=== PATIENT | female | born 1950 | race Two or more races ===

== ENCOUNTER 2024-08-27 05:39 | Inpatient (IN) | payer BC, OTHER ==
[~2024-08-27] VITALS: Ht 154.9 cm; Wt 100.2 kg
[2024-08-27 06:35] LABS: BASOPHILS # (AUTO) 0.1 K/uL (0.0-0.2); BASOPHILS % (AUTO) 0.4 % (0.0-2.0); EOSINOPHILS # (AUTO) 0.3 K/uL (0.0-0.7); EOSINOPHILS % (AUTO) 1.9 % (0.0-6.0); HEMATOCRIT 37 % (33-45); HEMOGLOBIN 11.8 g/dL (11.5-14.8); LYMPHOCYTES # (AUTO) 1.3 K/uL (0.8-4.8); LYMPHOCYTES % (AUTO) 8.4 % (20.0-44.0); MEAN CORPUSCULAR HEMOGLOBIN 28 PG (26.0-33.0); MEAN CORPUSCULAR HGB CONC 32 g/dl (31.0-36.0); MEAN CORPUSCULAR VOLUME 88 fL (82-100); MONOCYTES # (AUTO) 0.8 K/uL (0.1-1.30); MONOCYTES % (AUTO) 5.1 % (2.0-12.0); NEUTROPHILS # (AUTO) 13.3 K/uL (1.8-8.9); NEUTROPHILS % (AUTO) 84.2 % (43.0-81.0); PLATELET COUNT (AUTO) 279 K/uL (150-450); RED BLOOD CELL COUNT(AUTO) 4.18 MIL/uL (4.0-5.2); RED CELL DISTRIBUTION WIDTH 15.4 % (11.5-15.0); WHITE BLOOD COUNT (AUTO) 15.8 K/uL (4.3-11.0)
[2024-08-27 06:48] LABS: ALANINE AMINOTRANSFERASE 21 U/L (12-78); ALBUMIN 3.5 g/dL (3.4-5.0); ALKALINE PHOSPHATASE 78 U/L (46-116); ASPARTATE AMINOTRANSFERASE 20 U/L (15-37); BILIRUBIN,DIRECT 0.2 mg/dL (0.0-0.2); BILIRUBIN,TOTAL 0.6 mg/dL (0.2-1.0); CALCIUM, SERUM 8.9 mg/dL (8.5-10.1); CARBON DIOXIDE 31 mmol/L (21-32); CHLORIDE 96 mmol/L (98-107); CREATININE 1.3 mg/dL (0.6-1.3); GLUCOSE 154 mg/dL (74-106); POTASSIUM 4.2 mmol/L (3.5-5.1); SODIUM SERUM 132 mmol/L (136-145); UREA NITROGEN, BLOOD 10 mg/dL (7-18)
[2024-08-27] MEDS ORDERED: IOHEXOL-350 100 ML VIAL IV ONE (07:41)
[2024-08-27] MEDS ORDERED: IV NS 0.9% 250 ML IV ONE (07:42)
[2024-08-27] MEDS ORDERED: CT SWABBABLE VALVE TRANS SET 1 EA INFUS.SET MC ONE (07:42)
[2024-08-27] MEDS: PIPERACILLIN /TAZOBACTAM 3.375 G in IV D5W 50 ML IV ONE (08:00)
[2024-08-27] MEDS ORDERED: TRAZ-182 PO (08:35)
[2024-08-27] MEDS ORDERED: SIMV10TA98 PO (08:35)
[2024-08-27] MEDS ORDERED: GLIP5TAB13 PO (08:35)
[2024-08-27] MEDS ORDERED: SITA1TAB2 PO (08:35)
[2024-08-27] MEDS ORDERED: BENA40TA8 PO (08:35)
[2024-08-27] MEDS ORDERED: NIFE90TA38 PO (08:35)
[2024-08-27] MEDS ORDERED: METO50TA16 PO (08:35)
[2024-08-27] MEDS ORDERED: FURO20TA4 PO (08:35)
[2024-08-27] MEDS ORDERED: FUROSEMIDE 40 MG/4 ML VIAL ONE (08:40)
[2024-08-27] MEDS: FUROSEMIDE 40 MG/4 ML VIAL IV ONE (08:45)
[2024-08-27 10:25] VITALS: O2SAT 93
[2024-08-27] MEDS ORDERED: ENOXAPARIN SODIUM 40 MG/0.4 ML DISP.SYRIN SQ SCH (12:30)
[2024-08-27] MEDS ORDERED: ONDANSETRON HCL/PF 4 MG/2 ML VIAL IVP PRN (12:30)
[2024-08-27] MEDS ORDERED: Z GUARD REMEDY 4 OZ OINT TP PRN (12:30)
[2024-08-27] MEDS: BUMETANIDE INJ 6 MG in IV NS 0.9% 36 ML IV ONE (12:55)
[2024-08-27] MEDS: ENOXAPARIN SODIUM 30 MG/0.3 ML DISP.SYRIN SQ SCH (14:09)
[2024-08-27 16:00] VITALS: BP 130/66; TEMP 97.9; O2SAT 96
[2024-08-27] MEDS ORDERED: DEXTROSE 50%-WATER 50 ML DISP.SYRIN IV PRN (16:00)
[2024-08-27] MEDS: glipiZIDE 5 MG TABLET PO SCH (16:33)
[2024-08-27 16:57] LABS: APPEARANCE,URINE CLEAR (CLEAR); BILIRUBIN,URINE NEGATIVE (NEGATIVE); BLOOD, URINE TRACE-INTA Ery/uL (NEGATIVE); KETONES,URINE NEGATIVE (NEGATIVE); LEUKOCYTE ESTERASE ,URINE NEGATIVE (NEGATIVE); NITRITE, URINE NEGATIVE (NEGATIVE); PH,URINE 6.5 (5.0-8.0); PROTEIN,URINE NEGATIVE (NEGATIVE); UGLUCOSE NEGATIVE (NEGATIVE); UROBILINOGEN,URINE 0.2 EU/dL (0.2)
[2024-08-27] MEDS: BLOOD SUGAR DIAGNOSTIC 1 EACH STRIP IN SCH (17:00)
[2024-08-27] MEDS: INSULIN REGULAR, HUMAN 100 UNIT/ML 3 ML VIAL SQ PRN (17:01)
[2024-08-27 17:02] LABS: COLOR,URINE LIGHT YELLOW (YELLOW)
[2024-08-27 17:06] LABS: RBC,URINE 0-2 /HPF (0-2); WBC,URINE 0-2 /HPF (0-3)
[2024-08-27 17:07] LABS: ADD URINE CULTURE NO; BACTERIA,URINE Rare /HPF (None Seen)
[2024-08-27] MEDS: APIXABAN 2.5 MG TABLET PO SCH (17:14)
[2024-08-27] MEDS: SIMVASTATIN 10 MG TABLET PO SCH (17:14)
[2024-08-27 19:02] LABS: THYROID STIMULATING HORMONE 4.08 uIU/mL (0.358-3.74)
[2024-08-27] MEDS: TRAZODONE 50 MG TABLET PO SCH (21:36)
[2024-08-27] MEDS: METOPROLOL TARTRATE 50 MG TABLET PO SCH (21:36)
[2024-08-28] VITALS: BP 129/70; TEMP 98.1; O2SAT 96
[2024-08-28 04:00] VITALS: BP 129/70; TEMP 98.1; O2SAT 96
[2024-08-28 06:52] LABS: BASOPHILS % (AUTO) 0.3 % (0.0-2.0); EOSINOPHILS # (AUTO) 0.1 K/uL (0.0-0.7); EOSINOPHILS % (AUTO) 0.7 % (0.0-6.0); HEMATOCRIT 37 % (33-45); LYMPHOCYTES # (AUTO) 0.7 K/uL (0.8-4.8); MEAN CORPUSCULAR HEMOGLOBIN 28 PG (26.0-33.0); MEAN CORPUSCULAR HGB CONC 32 g/dl (31.0-36.0); MEAN CORPUSCULAR VOLUME 88 fL (82-100); MONOCYTES # (AUTO) 0.8 K/uL (0.1-1.30); MONOCYTES % (AUTO) 7.4 % (2.0-12.0); NEUTROPHILS # (AUTO) 9.1 K/uL (1.8-8.9); NEUTROPHILS % (AUTO) 84.6 % (43.0-81.0); PLATELET COUNT (AUTO) 279 K/uL (150-450); RED BLOOD CELL COUNT(AUTO) 4.25 MIL/uL (4.0-5.2); RED CELL DISTRIBUTION WIDTH 15.2 % (11.5-15.0); WHITE BLOOD COUNT (AUTO) 10.7 K/uL (4.3-11.0)
[2024-08-28 07:10] LABS: CALCIUM, SERUM 8.2 mg/dL (8.5-10.1); CREATININE 1.4 mg/dL (0.6-1.3); MAGNESIUM 1.9 mg/dL (1.8-2.4); POTASSIUM 3.5 mmol/L (3.5-5.1)
[2024-08-28 07:19] LABS: THYROID STIMULATING HORMONE 2.91 uIU/mL (0.358-3.74)
[2024-08-28 08:00] VITALS: BP 112/60; TEMP 99.9; O2SAT 97
[2024-08-28] MEDS ORDERED: FUROSEMIDE 20 MG TABLET PO SCH (09:00)
[2024-08-28] MEDS: PANTOPRAZOLE 40 MG TABLET.DR PO SCH (09:03)
[2024-08-28] MEDS: NIFEdipine XL (30MG) 30 MG TAB PO SCH (09:04)
[2024-08-28] MEDS: BENAZEPRIL HCL 20 MG TABLET PO SCH (09:04)
[2024-08-28] MEDS: APIXABAN 2.5 MG TABLET PO SCH (09:05)
[2024-08-28] MEDS: ACETAMINOPHEN 325 MG TABLET PO PRN (11:24)
[2024-08-28 12:00] VITALS: BP 113/64; TEMP 99.5; O2SAT 96
[2024-08-28] MEDS: IV NS 0.9% 250 ML IV ONE (12:44)
[2024-08-28] MEDS: AZITHROMYCIN 250 MG TABLET PO ONE (12:47)
[2024-08-28 14:04] LABS: ABG BASE EXCESS 10.7 mmol/L (-2.0-3.0); ABG OXYGEN SATURATION 97.3 % (94.0-98.0); ABG PCO2 60.6 mmHg (32.0-45.0); ABG PH 7.409 (7.350-7.450); ABG PO2 98.6 mmHg (83.0-108.0); ABG TOTAL HEMOGLOBIN 12.2 G/dL (12.0-16.0); COHb 0.2 % (0.5-1.5); MetHb 0.3 % (0.0-1.5); O2Hb 96.8 % (94.0-97.0); SITE, ABG RIGHT RADIAL
[2024-08-28] MEDS ORDERED: SORBITOL SOLUTION 70% 30 ML SOLUTION PO PRN (18:30)
[2024-08-28] MEDS: LACTULOSE 10 G/15 ML UDC (PYXIS) PO ONE (18:33)
[2024-08-29 08:00] VITALS: BP 126/57; TEMP 98.6; O2SAT 98
[2024-08-29] MEDS: AZITHROMYCIN 250 MG TABLET PO SCH (12:25)
[2024-08-29] MEDS ORDERED: SIMV10TA98 PO (15:09)
[2024-08-29] MEDS ORDERED: APIX2.5T PO (15:09)
[2024-08-29] MEDS ORDERED: NIFE90TA38 PO (15:09)
[2024-08-29] MEDS ORDERED: SITA1TAB2 PO (15:09)
[2024-08-29] MEDS ORDERED: METO50TA16 PO (15:09)
[2024-08-29] MEDS ORDERED: BENA40TA8 PO (15:09)
[2024-08-29] MEDS ORDERED: SORB30SO2 PO (15:09)
[2024-08-29] MEDS ORDERED: TRAZ-182 PO (15:09)
[2024-08-29] MEDS ORDERED: AZIT250T PO (15:09)
[2024-08-29] MEDS ORDERED: GLIP5TAB13 PO (15:09)
[2024-08-29] MEDS ORDERED: PANT40TA49 PO (15:09)
[2024-08-29] MEDS ORDERED: BUME0.5T6 PO (15:09)
[2024-08-29 16:00] VITALS: BP 109/53; TEMP 99.5; O2SAT 94
== END 2024-08-29 19:00 | disposition home or self-care (01) | DRG 291 ==
LOC: ER 05:53 → MED 10:36 → TELE 21:37
PROVIDERS: ADMIT Nurse Practitioner Acute Care; ATTEND Nurse Practitioner Acute Care
DX: I11.0 Hypertensive heart disease with heart failure (principal); I50.33 Acute on chronic diastolic (congestive) heart failure; J96.01 Acute respiratory failure with hypoxia; J98.11 Atelectasis; N39.0 Urinary tract infection, site not specified; D68.59 Other primary thrombophilia; N17.9 Acute kidney failure, unspecified; E66.2 Morbid (severe) obesity with alveolar hypoventilation; Z68.41 Body mass index [BMI] 40.0-44.9, adult; I48.91 Unspecified atrial fibrillation; B96.20 Unspecified Escherichia coli [E. coli] as the cause of diseases classified elsewhere; E11.9 Type 2 diabetes mellitus without complications; E78.5 Hyperlipidemia, unspecified; Z79.84 Long term (current) use of oral hypoglycemic drugs; Z20.822 Contact with and (suspected) exposure to COVID-19; F03.90 Unspecified dementia, unspecified severity, without behavioral disturbance, psychotic disturbance, mood disturbance, and anxiety; E83.9 Disorder of mineral metabolism, unspecified
CPT/HCPCS: 36415; 36600; 71045-TC; 80048-TC; 80061-TC; 80076-TC; 81001; 82803-TC; 82962-TC; 83605-TC; 83735-TC; 83880; 84100-TC; 84155; 84165; 84439-TC; 84443-TC; 84484-TC; 85025-TC; 85378-TC; 87040-TC; 93307-TC; 93970-TC; 94799-TC; A4223; G0378; J1650; J1815; J1940; J2543; J3490; J7030; J7050; J7060; Q9967

== ENCOUNTER 2024-09-22 17:42 | Inpatient (IN) | payer BC, OTHER ==
[~2024-09-22] VITALS: Ht 165.1 cm; Wt 97.1 kg
[~2024-09-22 17:42] MED LIST: APIX2.5T PO; AZIT250T PO; BENA40TA8 PO; BUME0.5T6 PO; FURO20TA4 PO; GLIP5TAB13 PO; METO50TA16 PO; NIFE90TA38 PO; PANT40TA49 PO; SIMV10TA98 PO; SITA1TAB2 PO; SORB30SO2 PO; TRAZ-182 PO
[2024-09-22 18:19] LABS: BASOPHILS % (AUTO) 0.5 % (0.0-2.0); EOSINOPHILS # (AUTO) 0.1 K/uL (0.0-0.7); EOSINOPHILS % (AUTO) 0.5 % (0.0-6.0); HEMATOCRIT 34 % (33-45); HEMOGLOBIN 11.1 g/dL (11.5-14.8); LYMPHOCYTES # (AUTO) 0.7 K/uL (0.8-4.8); LYMPHOCYTES % (AUTO) 6.5 % (20.0-44.0); MEAN CORPUSCULAR HEMOGLOBIN 28 PG (26.0-33.0); MEAN CORPUSCULAR HGB CONC 33 g/dl (31.0-36.0); MEAN CORPUSCULAR VOLUME 87 fL (82-100); MONOCYTES # (AUTO) 0.6 K/uL (0.1-1.30); MONOCYTES % (AUTO) 6.4 % (2.0-12.0); NEUTROPHILS # (AUTO) 8.6 K/uL (1.8-8.9); NEUTROPHILS % (AUTO) 86.1 % (43.0-81.0); PLATELET COUNT (AUTO) 229 K/uL (150-450); RED BLOOD CELL COUNT(AUTO) 3.92 MIL/uL (4.0-5.2); RED CELL DISTRIBUTION WIDTH 15.7 % (11.5-15.0)
[2024-09-22 18:32] LABS: CALCIUM, SERUM 8.8 mg/dL (8.5-10.1); CARBON DIOXIDE 30 mmol/L (21-32); CHLORIDE 87 mmol/L (98-107); CREATININE 1.5 mg/dL (0.6-1.3); GLUCOSE 227 mg/dL (74-106); POTASSIUM 4.1 mmol/L (3.5-5.1); SODIUM SERUM 122 mmol/L (136-145); UREA NITROGEN, BLOOD 21 mg/dL (7-18)
[2024-09-22 18:44] LABS: ALANINE AMINOTRANSFERASE 26 U/L (12-78); ALBUMIN 3.5 g/dL (3.4-5.0); ALKALINE PHOSPHATASE 79 U/L (46-116); ASPARTATE AMINOTRANSFERASE 28 U/L (15-37); BILIRUBIN,DIRECT 0.2 mg/dL (0.0-0.2); BILIRUBIN,TOTAL 0.4 mg/dL (0.2-1.0); NT-PRO BNP 4154 pg/mL (0-125); TOTAL PROTEIN, SERUM 9.1 g/dL (6.4-8.2)
[2024-09-22] MEDS: FUROSEMIDE 40 MG/4 ML VIAL IV ONE (19:12)
[2024-09-22] MEDS ORDERED: BUME0.5T6 PO (19:14)
[2024-09-22] MEDS ORDERED: ACETAMINOPHEN 325 MG TABLET PO PRN (21:00)
[2024-09-22] MEDS ORDERED: DEXTROSE 50%-WATER 50 ML DISP.SYRIN IV PRN (21:00)
[2024-09-22] MEDS ORDERED: Z GUARD REMEDY 4 OZ OINT TP PRN (21:00)
[2024-09-22] MEDS ORDERED: ONDANSETRON HCL/PF 4 MG/2 ML VIAL IVP PRN (21:00)
[2024-09-22] MEDS ORDERED: MAG HYDROX/AL HYDROX/SIMETH 30 ML UDC PO PRN (21:00)
[2024-09-22] MEDS: TRAZODONE 50 MG TABLET PO SCH (21:55)
[2024-09-22] MEDS: METOPROLOL TARTRATE 50 MG TABLET PO SCH (21:56)
[2024-09-22] MEDS: BLOOD SUGAR DIAGNOSTIC 1 EACH STRIP IN SCH (23:08)
[2024-09-22] MEDS: INSULIN REGULAR, HUMAN 100 UNIT/ML 3 ML VIAL SQ PRN (23:26)
[2024-09-23] VITALS: BP 130/70; TEMP 99.1; O2SAT 95
[2024-09-23 04:00] VITALS: BP 100/60; TEMP 98.4; O2SAT 98
[2024-09-23 08:00] VITALS: BP 121/68; TEMP 97.7; O2SAT 98
[2024-09-23 08:07] LABS: BASOPHILS % (AUTO) 0.1 % (0.0-2.0); EOSINOPHILS # (AUTO) 0.1 K/uL (0.0-0.7); EOSINOPHILS % (AUTO) 0.8 % (0.0-6.0); HEMATOCRIT 35 % (33-45); HEMOGLOBIN 11.3 g/dL (11.5-14.8); LYMPHOCYTES # (AUTO) 0.8 K/uL (0.8-4.8); LYMPHOCYTES % (AUTO) 8.5 % (20.0-44.0); MEAN CORPUSCULAR HEMOGLOBIN 28 PG (26.0-33.0); MEAN CORPUSCULAR HGB CONC 32 g/dl (31.0-36.0); MEAN CORPUSCULAR VOLUME 88 fL (82-100); MONOCYTES # (AUTO) 0.7 K/uL (0.1-1.30); MONOCYTES % (AUTO) 7.5 % (2.0-12.0); NEUTROPHILS # (AUTO) 7.6 K/uL (1.8-8.9); NEUTROPHILS % (AUTO) 83.1 % (43.0-81.0); PLATELET COUNT (AUTO) 246 K/uL (150-450); RED BLOOD CELL COUNT(AUTO) 3.99 MIL/uL (4.0-5.2); RED CELL DISTRIBUTION WIDTH 15.8 % (11.5-15.0); WHITE BLOOD COUNT (AUTO) 9.1 K/uL (4.3-11.0)
[2024-09-23] MEDS: PANTOPRAZOLE 40 MG TABLET.DR PO SCH (08:19)
[2024-09-23 08:30] LABS: CALCIUM, SERUM 8.6 mg/dL (8.5-10.1); CARBON DIOXIDE 36 mmol/L (21-32); CHLORIDE 90 mmol/L (98-107); CREATININE 1.4 mg/dL (0.6-1.3); GLUCOSE 83 mg/dL (74-106); PHOSPHORUS 4.5 mg/dL (2.5-4.9); SODIUM SERUM 125 mmol/L (136-145); UREA NITROGEN, BLOOD 21 mg/dL (7-18)
[2024-09-23] MEDS: FUROSEMIDE 40 MG/4 ML VIAL IV SCH (08:51)
[2024-09-23] MEDS: BENAZEPRIL HCL 20 MG TABLET PO SCH (08:51)
[2024-09-23] MEDS: NIFEdipine XL (30MG) 30 MG TAB PO SCH (08:52)
[2024-09-23] MEDS: APIXABAN 2.5 MG TABLET PO SCH (08:53)
[2024-09-23 12:00] VITALS: BP 125/68; TEMP 97.5; O2SAT 95
[2024-09-23 16:00] VITALS: BP 130/70; TEMP 97.6; O2SAT 94
[2024-09-23] MEDS: SIMVASTATIN 10 MG TABLET PO SCH (17:51)
[2024-09-23 20:00] VITALS: BP 128/77; TEMP 97.7; O2SAT 94
[2024-09-24] VITALS: BP 119/62; TEMP 98.6; O2SAT 96
[2024-09-24 01:56] LABS: APPEARANCE,URINE SLIGHTLY CLOUDY (CLEAR); BILIRUBIN,URINE NEGATIVE (NEGATIVE); BLOOD, URINE 2+ Ery/uL (NEGATIVE); COLOR,URINE YELLOW (YELLOW); KETONES,URINE NEGATIVE (NEGATIVE); LEUKOCYTE ESTERASE ,URINE 1+ (NEGATIVE); NITRITE, URINE POSITIVE (NEGATIVE); PROTEIN,URINE 2+ mg/dl (NEGATIVE); UGLUCOSE NEGATIVE (NEGATIVE); UROBILINOGEN,URINE 0.2 EU/dL (0.2)
[2024-09-24 01:57] LABS: ADD URINE CULTURE YES; BACTERIA,URINE Moderate /HPF (None Seen); EOSINOPHIL,URINE None Seen; SQUAMOUS EPITHELIAL CELL,UR Few /HPF (None Seen); WBC,URINE 21-50 /HPF (0-3)
[2024-09-24 02:06] LABS: CREATININE, URINE 64.1 MG/DL (30.0-125.0); URINE TOTAL PROTEIN 145.9 mg/dL (0-11.9)
[2024-09-24 04:00] VITALS: BP 138/75; TEMP 98.1; O2SAT 95
[2024-09-24 08:21] VITALS: BP 127/56; TEMP 98.6; O2SAT 93
[2024-09-24 10:33] LABS: BASOPHILS % (AUTO) 0.3 % (0.0-2.0); EOSINOPHILS # (AUTO) 0.1 K/uL (0.0-0.7); EOSINOPHILS % (AUTO) 0.6 % (0.0-6.0); HEMATOCRIT 34 % (33-45); HEMOGLOBIN 10.8 g/dL (11.5-14.8); LYMPHOCYTES # (AUTO) 0.6 K/uL (0.8-4.8); MEAN CORPUSCULAR HEMOGLOBIN 29 PG (26.0-33.0); MEAN CORPUSCULAR HGB CONC 32 g/dl (31.0-36.0); MEAN CORPUSCULAR VOLUME 89 fL (82-100); MONOCYTES # (AUTO) 0.7 K/uL (0.1-1.30); MONOCYTES % (AUTO) 7.2 % (2.0-12.0); NEUTROPHILS # (AUTO) 8.1 K/uL (1.8-8.9); NEUTROPHILS % (AUTO) 85.9 % (43.0-81.0); PLATELET COUNT (AUTO) 214 K/uL (150-450); WHITE BLOOD COUNT (AUTO) 9.5 K/uL (4.3-11.0)
[2024-09-24 12:00] VITALS: BP 115/59; TEMP 96.5; O2SAT 95
[2024-09-24 13:14] LABS: ALBUMIN 2.9 g/dL (3.4-5.0); BILIRUBIN,TOTAL 0.3 mg/dL (0.2-1.0); CALCIUM, SERUM 8.6 mg/dL (8.5-10.1); CREATININE 1.1 mg/dL (0.6-1.3); MAGNESIUM 2.1 mg/dL (1.8-2.4); PHOSPHORUS 3.9 mg/dL (2.5-4.9); POTASSIUM 3.8 mmol/L (3.5-5.1); TOTAL PROTEIN, SERUM 7.8 g/dL (6.4-8.2)
[2024-09-24 16:00] VITALS: BP 108/59; TEMP 99.1; O2SAT 93
[2024-09-24 16:44] LABS: ABG BASE EXCESS 7.9 mmol/L (-2.0-3.0); ABG OXYGEN SATURATION 96.8 % (94.0-98.0); ABG PCO2 43.2 mmHg (32.0-45.0); ABG PH 7.489 (7.350-7.450); ABG PO2 77.5 mmHg (83.0-108.0); ABG TOTAL HEMOGLOBIN 11.8 G/dL (12.0-16.0); MetHb 0.1 % (0.0-1.5); O2Hb 96.7 % (94.0-97.0); SITE, ABG RIGHT BRACHIAL
[2024-09-24 20:00] VITALS: BP 109/69; TEMP 98.2; O2SAT 95
[2024-09-25] VITALS: BP 124/66; TEMP 98.2; O2SAT 95
[2024-09-25] MEDS: LORAZEPAM INJ 2 MG/ML VIAL IV ONE (03:30)
[2024-09-25 04:00] VITALS: BP 134/66; TEMP 97.5; O2SAT 93
[2024-09-25] MEDS: LORAZEPAM INJ 2 MG/ML VIAL IM/IV ONE (05:27)
[2024-09-25 07:38] LABS: BASOPHILS # (AUTO) 0.1 K/uL (0.0-0.2); BASOPHILS % (AUTO) 0.6 % (0.0-2.0); EOSINOPHILS # (AUTO) 0.1 K/uL (0.0-0.7); EOSINOPHILS % (AUTO) 0.9 % (0.0-6.0); HEMATOCRIT 34 % (33-45); LYMPHOCYTES # (AUTO) 0.8 K/uL (0.8-4.8); LYMPHOCYTES % (AUTO) 7.6 % (20.0-44.0); MEAN CORPUSCULAR HEMOGLOBIN 28 PG (26.0-33.0); MEAN CORPUSCULAR HGB CONC 32 g/dl (31.0-36.0); MEAN CORPUSCULAR VOLUME 87 fL (82-100); MONOCYTES # (AUTO) 0.9 K/uL (0.1-1.30); MONOCYTES % (AUTO) 8.8 % (2.0-12.0); NEUTROPHILS # (AUTO) 8.5 K/uL (1.8-8.9); NEUTROPHILS % (AUTO) 82.1 % (43.0-81.0); PLATELET COUNT (AUTO) 225 K/uL (150-450); RED BLOOD CELL COUNT(AUTO) 3.88 MIL/uL (4.0-5.2); RED CELL DISTRIBUTION WIDTH 15.6 % (11.5-15.0); WHITE BLOOD COUNT (AUTO) 10.3 K/uL (4.3-11.0)
[2024-09-25 07:59] LABS: ALBUMIN 2.9 g/dL (3.4-5.0); BILIRUBIN,TOTAL 0.4 mg/dL (0.2-1.0); CALCIUM, SERUM 8.7 mg/dL (8.5-10.1); PHOSPHORUS 2.7 mg/dL (2.5-4.9); POTASSIUM 3.8 mmol/L (3.5-5.1); TOTAL PROTEIN, SERUM 7.9 g/dL (6.4-8.2)
[2024-09-25 08:00] VITALS: BP 120/97; TEMP 98.4; O2SAT 93
[2024-09-25 08:06] LABS: PTH, INTACT 48 pg/mL (15-65)
[2024-09-25] MEDS: FUROSEMIDE 40 MG/4 ML VIAL IV SCH (09:00)
[2024-09-25] MEDS ORDERED: POTASSIUM CHLORIDE 20 MEQ TAB.PRT.SR PO SCH (09:00)
[2024-09-25] MEDS ORDERED: POTASSIUM CHLORIDE 10 MEQ/50 ML PREMIXED IVPB FOR PERIPHERAL LINE IV ONE (10:00)
[2024-09-25] MEDS: POTASSIUM CL. PREMIX PERIPHER. 50 ML IV SCH (10:04)
[2024-09-25 12:00] VITALS: BP 137/89; TEMP 98.4; O2SAT 95
[2024-09-25] MEDS ORDERED: POLYVINYL ALCOHOL 15 ML BOTTLE EACHEYE PRN (12:30)
[2024-09-25] MEDS: CEFTRIAXONE 1 G in IV D5W 50 ML IV SCH (14:51)
[2024-09-25 16:00] VITALS: BP 127/68; TEMP 98.2; O2SAT 92
[2024-09-25 20:00] VITALS: BP 120/56; TEMP 98.1; O2SAT 98
[2024-09-26] VITALS: BP 107/62; TEMP 98.2; O2SAT 98
[2024-09-26 04:00] VITALS: BP 121/53; TEMP 98.1; O2SAT 98
[2024-09-26 07:55] LABS: BASOPHILS % (AUTO) 0.3 % (0.0-2.0); EOSINOPHILS # (AUTO) 0.1 K/uL (0.0-0.7); EOSINOPHILS % (AUTO) 1.4 % (0.0-6.0); HEMATOCRIT 36 % (33-45); HEMOGLOBIN 11.8 g/dL (11.5-14.8); LYMPHOCYTES # (AUTO) 1.2 K/uL (0.8-4.8); LYMPHOCYTES % (AUTO) 12.8 % (20.0-44.0); MEAN CORPUSCULAR HEMOGLOBIN 29 PG (26.0-33.0); MEAN CORPUSCULAR HGB CONC 33 g/dl (31.0-36.0); MEAN CORPUSCULAR VOLUME 88 fL (82-100); MONOCYTES % (AUTO) 10.3 % (2.0-12.0); NEUTROPHILS % (AUTO) 75.2 % (43.0-81.0); PLATELET COUNT (AUTO) 230 K/uL (150-450); RED BLOOD CELL COUNT(AUTO) 4.09 MIL/uL (4.0-5.2); RED CELL DISTRIBUTION WIDTH 15.9 % (11.5-15.0); WHITE BLOOD COUNT (AUTO) 9.3 K/uL (4.3-11.0)
[2024-09-26 08:00] VITALS: BP 137/70; TEMP 97.9; O2SAT 98
[2024-09-26 08:45] LABS: THYROID STIMULATING HORMONE 3.1 uIU/mL (0.358-3.74); URIC ACID 6.5 mg/dL (2.6-7.2)
[2024-09-26 09:26] LABS: ALBUMIN 3.1 g/dL (3.4-5.0); BILIRUBIN,TOTAL 0.4 mg/dL (0.2-1.0); CALCIUM, SERUM 8.9 mg/dL (8.5-10.1); CREATININE 1.2 mg/dL (0.6-1.3); MAGNESIUM 2.1 mg/dL (1.8-2.4); PHOSPHORUS 3.6 mg/dL (2.5-4.9); POTASSIUM 3.6 mmol/L (3.5-5.1); TOTAL PROTEIN, SERUM 8.3 g/dL (6.4-8.2)
[2024-09-26 12:00] VITALS: BP 101/48; TEMP 97.7; O2SAT 98
[2024-09-26 16:00] VITALS: BP 121/64; TEMP 97.9; O2SAT 96
[2024-09-26 20:00] VITALS: BP_SYST 121; BP_SYST 139; BP_DIAS 64; TEMP 98.8; O2SAT 96
[2024-09-27] VITALS: BP 142/74; TEMP 98.3; O2SAT 98
[2024-09-27 04:00] VITALS: BP 145/60; TEMP 98.6; O2SAT 100
[2024-09-27 07:07] LABS: BASOPHILS % (AUTO) 0.5 % (0.0-2.0); EOSINOPHILS # (AUTO) 0.3 K/uL (0.0-0.7); EOSINOPHILS % (AUTO) 3.1 % (0.0-6.0); HEMATOCRIT 36 % (33-45); HEMOGLOBIN 11.5 g/dL (11.5-14.8); LYMPHOCYTES # (AUTO) 1.3 K/uL (0.8-4.8); LYMPHOCYTES % (AUTO) 13.3 % (20.0-44.0); MEAN CORPUSCULAR HEMOGLOBIN 28 PG (26.0-33.0); MEAN CORPUSCULAR HGB CONC 32 g/dl (31.0-36.0); MEAN CORPUSCULAR VOLUME 88 fL (82-100); MONOCYTES # (AUTO) 1.2 K/uL (0.1-1.30); MONOCYTES % (AUTO) 11.8 % (2.0-12.0); NEUTROPHILS # (AUTO) 7.1 K/uL (1.8-8.9); NEUTROPHILS % (AUTO) 71.3 % (43.0-81.0); PLATELET COUNT (AUTO) 240 K/uL (150-450); RED BLOOD CELL COUNT(AUTO) 4.14 MIL/uL (4.0-5.2); RED CELL DISTRIBUTION WIDTH 16.4 % (11.5-15.0); WHITE BLOOD COUNT (AUTO) 9.9 K/uL (4.3-11.0)
[2024-09-27 07:29] LABS: CREATININE 0.9 mg/dL (0.6-1.3); MAGNESIUM 2.2 mg/dL (1.8-2.4); PHOSPHORUS 2.8 mg/dL (2.5-4.9); POTASSIUM 3.5 mmol/L (3.5-5.1)
[2024-09-27 08:00] VITALS: BP 144/68; TEMP 98.1; O2SAT 96
[2024-09-27] MEDS: PANTOPRAZOLE 40 MG/PACK PACK PO SCH (10:03)
[2024-09-27] MEDS: POTASSIUM CHLORIDE 20 MEQ TAB.PRT.SR PO ONE (10:04)
[2024-09-27] MEDS: acetaZOLAMIDE SODIUM 500 MG/VIAL VIAL IV ONE (10:11)
[2024-09-27 12:00] VITALS: BP 127/57; TEMP 98.1; O2SAT 96
[2024-09-27 14:20] LABS: ABG BASE EXCESS 17.1 mmol/L (-2.0-3.0); ABG OXYGEN SATURATION 94.5 % (94.0-98.0); ABG PCO2 70.5 mmHg (32.0-45.0); ABG PH 7.423 (7.350-7.450); ABG PO2 73.5 mmHg (83.0-108.0); ABG TOTAL HEMOGLOBIN 12.7 G/dL (12.0-16.0); COHb 0.6 % (0.5-1.5); MetHb 0.3 % (0.0-1.5); O2Hb 93.6 % (94.0-97.0); SITE, ABG RIGHT RADIAL
[2024-09-27 16:00] VITALS: BP 142/73; TEMP 98.6; O2SAT 99
[2024-09-27] MEDS: MAGNESIUM HYDROXIDE 30 ML UDC PO PRN (17:07)
[2024-09-27 20:00] VITALS: BP 134/66; TEMP 98.8; O2SAT 96
[2024-09-28] VITALS: BP 136/69; TEMP 98.6; O2SAT 97
[2024-09-28 04:00] VITALS: BP 135/65; TEMP 98.4; O2SAT 97
[2024-09-28 07:46] LABS: BASOPHILS # (AUTO) 0.1 K/uL (0.0-0.2); BASOPHILS % (AUTO) 0.5 % (0.0-2.0); EOSINOPHILS # (AUTO) 0.7 K/uL (0.0-0.7); EOSINOPHILS % (AUTO) 5.9 % (0.0-6.0); HEMATOCRIT 39 % (33-45); HEMOGLOBIN 12.3 g/dL (11.5-14.8); LYMPHOCYTES # (AUTO) 1.1 K/uL (0.8-4.8); LYMPHOCYTES % (AUTO) 9.1 % (20.0-44.0); MEAN CORPUSCULAR HEMOGLOBIN 28 PG (26.0-33.0); MEAN CORPUSCULAR HGB CONC 32 g/dl (31.0-36.0); MEAN CORPUSCULAR VOLUME 89 fL (82-100); MONOCYTES # (AUTO) 1.1 K/uL (0.1-1.30); MONOCYTES % (AUTO) 8.5 % (2.0-12.0); NEUTROPHILS # (AUTO) 9.6 K/uL (1.8-8.9); PLATELET COUNT (AUTO) 249 K/uL (150-450); RED CELL DISTRIBUTION WIDTH 16.5 % (11.5-15.0); WHITE BLOOD COUNT (AUTO) 12.7 K/uL (4.3-11.0)
[2024-09-28 08:00] VITALS: BP 133/101; TEMP 98.6; O2SAT 100
[2024-09-28 08:20] LABS: ALBUMIN 3.2 g/dL (3.4-5.0); BILIRUBIN,TOTAL 0.3 mg/dL (0.2-1.0); CALCIUM, SERUM 9.6 mg/dL (8.5-10.1); MAGNESIUM 2.3 mg/dL (1.8-2.4); POTASSIUM 3.7 mmol/L (3.5-5.1); TOTAL PROTEIN, SERUM 8.9 g/dL (6.4-8.2)
[2024-09-28] MEDS: POTASSIUM CHLORIDE 20 MEQ TAB.PRT.SR PO ONE (10:23)
[2024-09-28 12:00] VITALS: BP 114/68; TEMP 98.5; O2SAT 100
[2024-09-28] MEDS: acetaZOLAMIDE SODIUM 500 MG/VIAL VIAL IV ONE (12:42)
[2024-09-28 16:00] VITALS: BP 109/48; TEMP 98.4; O2SAT 98
[2024-09-28 20:00] VITALS: BP 114/61; TEMP 98.8; O2SAT 97
[2024-09-29 05:00] VITALS: BP 117/63; TEMP 98.1; O2SAT 99
[2024-09-29 07:55] LABS: BASOPHILS % (AUTO) 0.3 % (0.0-2.0); EOSINOPHILS # (AUTO) 0.9 K/uL (0.0-0.7); EOSINOPHILS % (AUTO) 8.2 % (0.0-6.0); HEMATOCRIT 39 % (33-45); HEMOGLOBIN 12.4 g/dL (11.5-14.8); LYMPHOCYTES # (AUTO) 1.2 K/uL (0.8-4.8); LYMPHOCYTES % (AUTO) 11.3 % (20.0-44.0); MEAN CORPUSCULAR HEMOGLOBIN 28 PG (26.0-33.0); MEAN CORPUSCULAR HGB CONC 32 g/dl (31.0-36.0); MEAN CORPUSCULAR VOLUME 89 fL (82-100); MONOCYTES # (AUTO) 0.9 K/uL (0.1-1.30); MONOCYTES % (AUTO) 8.3 % (2.0-12.0); NEUTROPHILS # (AUTO) 7.9 K/uL (1.8-8.9); NEUTROPHILS % (AUTO) 71.9 % (43.0-81.0); PLATELET COUNT (AUTO) 250 K/uL (150-450); RED BLOOD CELL COUNT(AUTO) 4.43 MIL/uL (4.0-5.2); RED CELL DISTRIBUTION WIDTH 16.4 % (11.5-15.0)
[2024-09-29 08:25] LABS: CALCIUM, SERUM 9.4 mg/dL (8.5-10.1); CREATININE 1.1 mg/dL (0.6-1.3); MAGNESIUM 2.4 mg/dL (1.8-2.4); PHOSPHORUS 3.3 mg/dL (2.5-4.9); POTASSIUM 3.7 mmol/L (3.5-5.1)
[2024-09-29 13:16] VITALS: BP 112/48; TEMP 98.4; O2SAT 98
[2024-09-30 15:07] LABS: *SPE A/G RATIO 0.7 (0.7-1.7); *SPE ALBUMIN 2.9 g/dL (2.9-4.4); *SPE ALPHA-1-GLOBULIN 0.2 g/dL (0.0-0.4); *SPE ALPHA-2-GLOBULIN 0.7 g/dL (0.4-1.0); *SPE BETA GLOBULIN 0.9 g/dL (0.7-1.3); *SPE GLOBULIN, TOTAL 4.1 g/dL (2.2-3.9); *SPE M-SPIKE Not Observed g/dL (Not Observed); *SPEGAMMA GLOBULIN 2.2 g/dL (0.4-1.8)
== END 2024-09-29 17:44 | disposition home health service (06) | DRG 291 ==
LOC: ER 17:49 → TELE1 20:23 → MEDSG1 09-28 09:33
PROVIDERS: ADMIT Nurse Practitioner Acute Care
DX: I13.0 Hypertensive heart and chronic kidney disease with heart failure and stage 1 through stage 4 chronic kidney disease, or unspecified chronic kidney disease (principal); I50.31 Acute diastolic (congestive) heart failure; J96.01 Acute respiratory failure with hypoxia; N17.0 Acute kidney failure with tubular necrosis; E87.1 Hypo-osmolality and hyponatremia; E87.4 Mixed disorder of acid-base balance; E66.2 Morbid (severe) obesity with alveolar hypoventilation; J90 Pleural effusion, not elsewhere classified; N39.0 Urinary tract infection, site not specified; B96.20 Unspecified Escherichia coli [E. coli] as the cause of diseases classified elsewhere; D64.9 Anemia, unspecified; E11.22 Type 2 diabetes mellitus with diabetic chronic kidney disease; E78.5 Hyperlipidemia, unspecified; I48.91 Unspecified atrial fibrillation; N18.9 Chronic kidney disease, unspecified; Z79.01 Long term (current) use of anticoagulants; Z79.84 Long term (current) use of oral hypoglycemic drugs; Z87.01 Personal history of pneumonia (recurrent); Z87.440 Personal history of urinary (tract) infections; Z20.822 Contact with and (suspected) exposure to COVID-19; Z68.35 Body mass index [BMI] 35.0-35.9, adult; E83.9 Disorder of mineral metabolism, unspecified
CPT/HCPCS: 36415; 36600; 71045-TC; 71250-TC; 76770-TC; 80048-TC; 80053-TC; 80076-TC; 81001; 82550-TC; 82570-TC; 82803-TC; 82962-TC; 83735-TC; 83880; 83970; 84100-TC; 84155; 84165; 84300-TC; 84443-TC; 84484-TC; 84550-TC; 85025-TC; 87086-TC; 87186-TC; 94799-TC; 97110-TC; 97112-TC; 97116-TC; 97530-TC; 97535-TC; G0378; J0696; J1120; J1815; J1938; J2060; J3480; J7050; J7060